=== PATIENT | male | born 1940 | race Caucasian/White ===

== ENCOUNTER → 2020-12-12 10:33 | Outpatient (CLI) | payer MEDICARE, OTHER, SELFPAY | PROVIDERS: PCP Family Medicine; Referring Provider Family Medicine; Visit Provider Family Medicine | DX: R00.1 Bradycardia, unspecified (principal) | CPT/HCPCS: 93005 ==

== ENCOUNTER → 2020-12-13 08:30 | Outpatient (CLI) | payer MEDICARE, OTHER, SELFPAY ==
[2020-12-13 09:48] LABS: Add Manual Diff / Slide Review NO; Basophils Absolute Auto 100 /uL (0-100); Basophils Percent Auto 0.9 % (0-2); Eosinophils Absolute Auto 500 /uL (0-450); Hematocrit 37.3 % (41-53); Hemoglobin 13.1 g/dL (13.5-17.5); Lymphocytes Absolute Auto 2000 /uL (1100-4500); Mean Corpuscular HGB Conc 35.1 % (30-36); Mean Corpuscular Hemoglobin 32.7 PG (26-34); Mean Corpuscular Volume 93.1 fL (80-100); Monocytes Absolute Auto 500 /uL (0-900); Monocytes Percent Auto 7.6 % (3-14); Neutrophils Absolute Auto 3700 /uL (1500-7000); Neutrophils Percent Auto 55.5 % (50-75); Platelet Count 179 X10^3/uL (150-400); Red Blood Cell Count 4.01 X10^6/uL (4.5-5.9); Red Cell Distribution Width 13.6 % (11.6-14.8); White Blood Cell Count 6.7 X10^3/uL (4.5-11.0)
[2020-12-13 09:58] LABS: Alanine Aminotransferase 19 IU/L (<50); Albumin 4.1 g/dL (3.5-5.0); Albumin Globulin Ratio 1.5 (1.0-2.8); Alkaline Phosphatase 66 U/L (38-126); Aspartate Aminotransferase 25 IU/L (17-59); BUN Creatinine Ratio 28.8 (6-22); Bilirubin Total 0.8 mg/dL (0.2-1.3); Blood Urea Nitrogen 23 mg/dL (9-20); Calcium 9.6 mg/dL (8.4-10.2); Carbon Dioxide 27 mmol/L (22-32); Chloride 104 mmol/L (98-107); Cholesterol 148 mg/dL (140-199); Estimated Glomerular Filt Rate > 60.0 mL/min (>60); Globulin 2.7 g/dL (1.7-4.1); Glucose 114 mg/dL (80-110); HDL Cholesterol 54 mg/dL (40-60); HEMOLYSIS < 15 (0-50); LDL Cholesterol Calculated 86 mg/dL (<100); Potassium 5.2 mmol/L (3.4-5.1); Sodium 138 mmol/L (137-145); Total Protein 6.8 g/dL (6.3-8.2); Triglycerides 39 mg/dL (35-150)
[2020-12-13 10:35] LABS: Prostate Specific Antigen Scrn < 0.064 ng/mL (0.1-4.0)
== END ==
PROVIDERS: PCP Family Medicine; Referring Provider Family Medicine; Visit Provider Family Medicine
DX: E78.5 Hyperlipidemia, unspecified (principal); Z12.5 Encounter for screening for malignant neoplasm of prostate; I10 Essential (primary) hypertension; N13.8 Other obstructive and reflux uropathy; N40.1 Benign prostatic hyperplasia with lower urinary tract symptoms
CPT/HCPCS: 36415; 80053; 80061; 85025; G0103

== ENCOUNTER → 2020-12-19 13:42 | Outpatient (CLI) | payer MEDICARE, OTHER, SELFPAY ==
--- NOTE | 2021-01-08 17:32 | P.HOLT.S_ITS ---
Planning Consultant Report Referral & Results Date Patient Seen: 12/19/20 Requesting provider: Shant Telles Indication: Bradycardia Duration of monitoring (days): 10 Diary information: There are no patient events to review Data: Minimum heart rate was 40 beats per minute at 11:42 on 12/24/2020 Maximum sinus heart rate was 132 beats per minute at 14:14 on 12/22/2020 Maximum overall heart rate was 156 beats per minute at 22:06 on 12/20/2020 during a 6 beat run of SVT Approximately 3.5% of identified beats were supraventricular ectopic in origin which would classify them as occasional Less than 1% of identified beats were ventricular ectopic in origin There were 11 runs of SVT the longest lasting 11.5 seconds 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
== END ==
PROVIDERS: PCP Family Medicine; Referring Provider Family Medicine; Visit Provider Family Medicine
DX: R00.1 Bradycardia, unspecified (principal)
CPT/HCPCS: 93242; 93244

== ENCOUNTER → 2021-01-03 13:27 | Outpatient (CLI) | payer MEDICARE, OTHER, SELFPAY ==
--- NOTE | 2021-01-03 13:42 | DI.ECHO.S_ITS ---
Reason For Study: Bradycardia : :Ordering Physician: JADA : :EZEQUIEL Performed By: Jason Barclay : :Referring: EZEQUIEL ELIAS : + + Interpretation Summary 1) Normal left ventricular thickness, size, wall motion, and systolic function (EF 60-65%). 2) Normal right ventricular size and function. 3) There is mild aortic regurgitation. 4) Hypertension present during the study (BP 157/85mmHg). 5) No prior Echo available for comparison. Procedure: A two-dimensional transthoracic echocardiogram with color flow and Doppler was performed. The study quality was technically adequate. There is no prior echocardiogram noted for this patient. The patient was in sinus rhythm with heart rates between 52-63 bpm during the exam. Left Ventricle: The left ventricle is normal in size and wall thickness. Left ventricular systolic function is normal. The ejection fraction is estimated to be 60-65%. There are no focal wall motion abnormalities. Diastolic parameters suggest a relaxation abnormality of the left ventricle, consistent with probable normal filling pressures. Right Ventricle: The right ventricle is normal in size and function. Atria: The left atrial size is normal. The right atrium is normal in size. There is no Doppler evidence for an interatrial shunt. Mitral Valve: There is mild mitral annular calcification. There is trace mitral regurgitation. Aortic Valve: The aortic valve is normal in structure and function. There is no aortic valve stenosis. There is mild aortic regurgitation. Tricuspid Valve: The tricuspid valve is normal in structure and function. There is trace tricuspid regurgitation. Pulmonary artery pressures cannot be estimated because of the lack of a measurable TR jet velocity but the IVC suggests a CVP of around 3 mmHg. Pulmonic Valve: The pulmonic valve is not well seen, but is grossly normal. There is a trace or physiologic amount of pulmonic regurgitation. Great Vessels: The aortic root is normal size. The dimensions of the ascending aorta are normal. The IVC is of normal diameter and collapses greater than 50% with a sniff. This suggests a low right atrial pressure of 3 mm Hg. Pericardium/ Pleura There is no pericardial effusion. There is no pleural effusion. MMode/2D Measurements & Calculations LVIDd: 5.4 cm LVOT diam: 2.3 cm LVIDs: 3.6 cm Ao root diam: 3.8 cm FS: 33.7 % asc Aorta Diam: 3.3 cm IVSd: 1.1 cm LVPWd: 0.96 cm LV albarado. diameter/BSA (cm/m^2): 2.8 LV sys. diameter/BSA (cm/m^2): 1.9 LA A2 area: 18.1 cm2 RA area: 14.2 cm2 LA A4 area: 19.8 cm2 LA length (vol): 5.0 cm LA vol: 60.1 ml LA vol index: 31.6 ml/m2 RVD1 (basal): 3.3 cm TAPSE: 2.7 cm Doppler Measurements & Calculations Ao V2 max: 176.0 cm/sec LVOT Max Hudson: 124.0 cm/sec Ao V2 mean: 119.0 cm/sec LV V1 max P.2 mmHg Ao max P.4 mmHg LV V1 VTI: 28.1 cm Ao mean P.5 mmHg LUCÍA(I,D): 2.8 cm2 Ao V2 VTI: 41.5 cm LUCÍA(V,D): 2.9 cm2 sev ratio: 0.68 LUCÍA indexed to BSA (cm^2/m^2): 1.4 MV E max hudson: 96.1 cm/sec PA V2 max: 114.0 cm/sec MV A max hudson: 119.3 cm/sec PA V2 mean: 75.5 cm/sec MV E/A: 0.81 PA mean P.6 mmHg Med Peak E' Hudson: 6.1 cm/sec PA pr(Accel): 22.9 mmHg E/E' med: 15.7 Lat Peak E' Hudson: 10.7 cm/sec E/E' lat: 8.9 E/e' average: 12.3 MV dec time: 0.32 sec SV(LVOT): 114.3 ml Reading Physician:03:52 PM
== END ==
PROVIDERS: PCP Family Medicine; Referring Provider Family Medicine; Visit Provider Family Medicine
DX: I35.1 Nonrheumatic aortic (valve) insufficiency (principal); I49.9 Cardiac arrhythmia, unspecified; I95.9 Hypotension, unspecified; R42 Dizziness and giddiness
CPT/HCPCS: 93306

== ENCOUNTER → 2022-02-11 07:15 | Outpatient (CLI) | payer MEDICARE, OTHER, SELFPAY ==
[2022-02-11 08:52] LABS: Add Manual Diff / Slide Review NO; Basophils Absolute Auto 0 /uL (0-100); Basophils Percent Auto 0.6 % (0-2); Eosinophils Absolute Auto 600 /uL (0-450); Eosinophils Percent Auto 8.9 % (2-4); Hematocrit 37.3 % (41-53); Hemoglobin 12.9 g/dL (13.5-17.5); Lymphocytes Absolute Auto 1800 /uL (1100-4500); Lymphocytes Percent Auto 27.8 % (25-40); Mean Corpuscular HGB Conc 34.5 % (30-36); Mean Corpuscular Hemoglobin 31.2 PG (26-34); Mean Corpuscular Volume 90.5 fL (80-100); Monocytes Absolute Auto 400 /uL (0-900); Monocytes Percent Auto 5.7 % (3-14); Neutrophils Absolute Auto 3700 /uL (1500-7000); Platelet Count 235 X10^3/uL (150-400); Red Blood Cell Count 4.12 X10^6/uL (4.5-5.9); Red Cell Distribution Width 13.1 % (11.6-14.8); White Blood Cell Count 6.5 X10^3/uL (4.5-11.0)
[2022-02-11 09:03] LABS: Alanine Aminotransferase 19 IU/L (<50); Albumin 4.2 g/dL (3.5-5.0); Albumin Globulin Ratio 1.4 (1.0-2.8); Alkaline Phosphatase 63 U/L (38-126); Aspartate Aminotransferase 28 IU/L (17-59); BUN Creatinine Ratio 20.2 (6-22); Bilirubin Total 0.7 mg/dL (0.2-1.3); Blood Urea Nitrogen 18 mg/dL (9-20); Carbon Dioxide 28 mmol/L (22-32); Chloride 104 mmol/L (98-107); Cholesterol 221 mg/dL (140-199); Estimated Glomerular Filt Rate > 60 mL/min (>60); Globulin 3.1 g/dL (1.7-4.1); Glucose 134 mg/dL (80-110); HDL Cholesterol 54 mg/dL (40-60); HEMOLYSIS < 15 (0-50); LDL Cholesterol Calculated 154 mg/dL (<100); Potassium 4.7 mmol/L (3.4-5.1); Sodium 138 mmol/L (137-145); Total Protein 7.3 g/dL (6.3-8.2); Triglycerides 66 mg/dL (35-150)
[2022-02-11 09:32] LABS: Prostate Specific Antigen Scrn 0.202 ng/mL (0.1-4.0)
== END ==
PROVIDERS: PCP Family Medicine; Referring Provider Family Medicine; Visit Provider Family Medicine
DX: E78.5 Hyperlipidemia, unspecified (principal); Z12.5 Encounter for screening for malignant neoplasm of prostate; N13.8 Other obstructive and reflux uropathy; N40.1 Benign prostatic hyperplasia with lower urinary tract symptoms
CPT/HCPCS: 36415; 80053; 80061; 85025; G0103

== ENCOUNTER → 2022-02-13 11:40 | Outpatient (CLI) | payer MEDICARE, OTHER, SELFPAY ==
[2022-02-13 13:14] LABS: Hemoglobin A1C% w Est Avg Glu 6.2 % (4.0-6.0)
[2022-02-13 13:28] LABS: Free T3, Triiodothyronine Free 3.48 pg/mL (2.77-5.27); Free T4, Direct Thyroxine 1.16 ng/dL (0.78-2.19)
[2022-02-13 13:42] LABS: Thyroid Stimulating Hormone 2.85 uIU/mL (0.47-4.68)
== END ==
PROVIDERS: PCP Family Medicine; Referring Provider Family Medicine; Visit Provider Family Medicine
DX: I10 Essential (primary) hypertension (principal); I95.9 Hypotension, unspecified; R00.1 Bradycardia, unspecified; R73.01 Impaired fasting glucose
CPT/HCPCS: 36415; 83036; 84439; 84443; 84481

== ENCOUNTER → 2022-04-10 14:54 | Outpatient (CLI) | payer MEDICARE, OTHER, SELFPAY ==
--- NOTE | 2022-04-10 15:00 | DIET.CONS ---
Dietary Consultation Note Assessment: 81y M and spouse attending RD visit for help with preDM (A1c 6.2) and HLD (LDL 154). Pt has made some changes to diet since getting diagnosed with preDM including avoiding cookies and breads. Pt and come with many questions. Usual Day: Eating pattern two meals and two snacks daily wakes 4:30am 5am has banana 9am breakfast: 2 scrambled eggs c mushrooms, onions and eggs, armando bits, 1/2 cup fruit (gave up toast), drinks coffee and diet Sobe (0g sugar) Snacks/Lunch: 3/4c light cottage cheese c 1/2 fresh fruit; sometimes two slices salami and two slices cheese Dinner: meatloaf c corn on cob and salad; meat (pork, chicken, fish) and potato and salad or veggies (asparagus) Pt has sweet tooth- apple or frozen yogurt stopped eating cookies Exercise: Pt has no intentional exercise, mostly yardwork. Nutrition Diagnosis: altered nutrition related laboratory values (A1c, LDL) r/t nutrition related knowledge deficit aeb A1c 6.2, LDL 154, pt reports adding >1TBS honey to breakfast, snacks on salami and cheese, pt avoiding whole grain breads. Interventions: 1. Discussed role of diet and exercise in preDM and elevated BG. 2. Educated pt and spouse on label reading for fiber and added sugars. Practiced label reading for cereal and crackers. Gave reccs for no more than 10g added sugar in cereal and boxed grain foods must have >3g dietary fiber. 3. Introduced pt and spouse to [employer] for recipes and DM meal plans. 4. Discussed difference between added and natural sugars. Honey to be counted as added. 5. Discussed role of exercise in BG regulation. Encouraged 10 minute walks 1-3x/d. Monitoring/Evaluations: f/u prn Electronically Signed by: Susan Quinonez 04/10/22 15:00 Clinical Dietitian [address] [address]
== END ==
PROVIDERS: PCP Family Medicine; Referring Provider Family Medicine; Visit Provider Family Medicine
DX: R73.03 Prediabetes (principal); E78.5 Hyperlipidemia, unspecified; Z71.3 Dietary counseling and surveillance
CPT/HCPCS: 97802

== ENCOUNTER → 2022-08-21 07:53 | Outpatient (CLI) | payer MEDICARE, OTHER, SELFPAY ==
[2022-08-21 09:05] LABS: Hemoglobin A1C% w Est Avg Glu 5.9 % (4.0-6.0)
[2022-08-21 09:06] LABS: Add Manual Diff / Slide Review NO; Basophils Absolute Auto 100 /uL (0-100); Basophils Percent Auto 0.9 % (0-2); Eosinophils Absolute Auto 700 /uL (0-450); Hematocrit 37.3 % (41-53); Hemoglobin 12.7 g/dL (13.5-17.5); Lymphocytes Absolute Auto 2200 /uL (1100-4500); Lymphocytes Percent Auto 30.4 % (25-40); Mean Corpuscular HGB Conc 33.9 % (30-36); Mean Corpuscular Hemoglobin 31.1 PG (26-34); Mean Corpuscular Volume 91.7 fL (80-100); Monocytes Absolute Auto 500 /uL (0-900); Monocytes Percent Auto 6.8 % (3-14); Neutrophils Absolute Auto 3800 /uL (1500-7000); Neutrophils Percent Auto 51.9 % (50-75); Platelet Count 305 X10^3/uL (150-400); Red Blood Cell Count 4.07 X10^6/uL (4.5-5.9); Red Cell Distribution Width 13.3 % (11.6-14.8); White Blood Cell Count 7.3 X10^3/uL (4.5-11.0)
[2022-08-21 09:18] LABS: Alanine Aminotransferase 18 IU/L (<50); Albumin 4.1 g/dL (3.5-5.0); Albumin Globulin Ratio 1.3 (1.0-2.8); Alkaline Phosphatase 59 U/L (38-126); Aspartate Aminotransferase 22 IU/L (17-59); BUN Creatinine Ratio 24.1 (6-22); Bilirubin Total 0.7 mg/dL (0.2-1.3); Blood Urea Nitrogen 21 mg/dL (9-20); Calcium 9.2 mg/dL (8.4-10.2); Carbon Dioxide 29 mmol/L (22-32); Chloride 101 mmol/L (98-107); Cholesterol 156 mg/dL (140-199); Estimated Glomerular Filt Rate > 60 mL/min (>60); Globulin 3.2 g/dL (1.7-4.1); Glucose 106 mg/dL (80-110); HDL Cholesterol 47 mg/dL (40-60); HEMOLYSIS < 15 (0-50); LDL Cholesterol Calculated 100 mg/dL (<100); Potassium 4.7 mmol/L (3.4-5.1); Sodium 139 mmol/L (137-145); Total Protein 7.3 g/dL (6.3-8.2); Triglycerides 45 mg/dL (35-150)
== END ==
PROVIDERS: PCP Family Medicine; Referring Provider Family Medicine; Visit Provider Family Medicine
DX: E78.00 Pure hypercholesterolemia, unspecified (principal); R73.03 Prediabetes; R73.01 Impaired fasting glucose
CPT/HCPCS: 36415; 80053; 80061; 83036; 85025

== ENCOUNTER → 2022-09-25 09:37 | Outpatient (CLI) | payer MEDICARE, OTHER, SELFPAY ==
--- NOTE | 2022-10-06 08:21 | P.HOLT.S_ITS ---
[employer] Associate Report Referral & Results Date Patient Seen: 09/25/22 Requesting provider: Catracho Telles Indication: Bradycardia Duration of monitoring (days): 3 Diary information: There was 1 patient triggered event. This patient triggered event was associated with sinus rhythm, PACs and probably junctional rhythm (QRS morphology preserved however) Data: Minimum heart rate identified was 35 beats per minute at 10:06 on 09/27/2022 Maximum sinus heart rate was 127 beats per minute at 10:46 on 09/27/2022 Maximum overall heart rate was 171 beats per minute at 10:36 on 09/26/2022 during a run of SVT There were no pauses of 3 seconds or longer or episodes of atrial fibrillation identified on this study Proximal 8.4% of identified beats were supraventricular ectopic in origin which classify them as frequent Less than 1% of identified beats were ventricular ectopic in origin which would classify them as rare There was 1 run of possible junctional rhythm as noted above with preserved QRS morphology was suggests a probable supraventricular source of conduction. 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 Difficult to be absolutely sure based on quality of tracings available from this time frame Clinical correlation suggested
== END ==
PROVIDERS: PCP Family Medicine; Referring Provider Family Medicine; Visit Provider Family Medicine
DX: R00.1 Bradycardia, unspecified (principal); R42 Dizziness and giddiness
CPT/HCPCS: 93242; 93244

== ENCOUNTER → 2022-10-07 07:59 | Outpatient (CLI) | payer MEDICARE, OTHER, SELFPAY ==
--- NOTE | 2022-10-07 | DI.RAD.S_ITS ---
PROCEDURE: XR FOOT RT MIN 3V INDICATIONS: INJURY TECHNIQUE: 3 views of the foot were acquired. COMPARISON: None. FINDINGS: Bones: No fractures or dislocations. Mild hallux valgus deformity with bunion formation. There is moderate to severe joint space loss at the 1st MTP joint. Small osteophytes. No suspicious bony lesions. Soft tissues: No tibiotalar joint effusion. Achilles tendon appears normal. 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 Mild hallux valgus deformity with bunion formation. Dictated by: Remberto Zuluaga M.D. on 10/07/2022 at 10:52 Approved by: Remberto Zuluaga M.D. on 10/07/2022 at 10:55
--- NOTE | 2022-10-07 08:00 | DI.ECHO.S_ITS ---
[facility] +---------+ [facility] +---------+ : : [address] : : : : [id number] : : : : Phone: [phone]---------+ Echocardiogram Report + + :Name: CUAUHTEMOC QUINTANA Study Date: 10/07/2022 Height: 65 in : :[facility] ReadingLocation: Weight: 161 lb : : Gender: Male BSA: 1.8 m2 : :: 1940 Age: 82 yrs BP: 132/76 mmHg: :Reason For Study: BRADYCARDIA : :Ordering Physician: EZEQUIEL ELIASPerformed By: Radha Cook : :Referring: EZEQUIEL ELIAS : + + Interpretation Summary 1) Normal left ventricular thickness and size with low normal systolic function (EF 50-55%). 2) Normal right ventricular size and function. 3) There is mild mitral regurgitation. There is mild aortic regurgitation. 4) There is a trace loculated pericardial effusion. 5) Compared to the Echo done 01/03/2021, LVEF has decreased slightly from 60- 65% to 50-55% on this study. Procedure: A two-dimensional transthoracic echocardiogram with color flow and Doppler was performed. The study quality was technically adequate. Comparison is made with the echocardiogram of 01/03/2021. The patient was in sinus bradycardia with heart rates between 42-60 bpm during the exam. The patient had occasional PVCs during the exam. Left Ventricle: The left ventricle is normal in size and wall thickness. The ejection fraction is estimated to be 50-55%. There are no focal wall motion abnormalities. Right Ventricle: The right ventricle is normal in size and function. Atria: The left atrium is severely dilated. Right atrial size is normal. There is no Doppler evidence for an interatrial shunt. Mitral Valve: The mitral valve leaflets appear mildly thickened, but open well. There is mild mitral annular calcification. There is mild mitral regurgitation. Aortic Valve: The aortic valve is trileaflet. The aortic valve opens well. There is no aortic valve stenosis. There is mild aortic regurgitation. Tricuspid Valve: The tricuspid valve is normal in structure and function. There is trace tricuspid regurgitation. Pulmonary artery pressures cannot be estimated because of the lack of a measurable TR jet velocity. Pulmonic Valve: The pulmonic valve leaflets are thin and pliable; valve motion is normal. There is mild pulmonic regurgitation. Great Vessels: The aortic root is borderline dilated. The dimensions of the ascending aorta are normal. The IVC is of normal diameter and collapses greater than 50% with a sniff. This suggests a low right atrial pressure of 3 mm Hg. Pericardium/ Pleura There is a trace loculated pericardial effusion. There is no pleural effusion. MMode/2D Measurements & Calculations LVIDd: 5.9 cm LVOT diam: 2.1 cm LVIDs: 3.8 cm Ao root diam: 3.9 cm FS: 35.2 % asc Aorta Diam: 3.3 cm IVSd: 0.79 cm Ao Arch Diam (Prox Trans): 2.4 cm LVPWd: 1.1 cm LV albarado. diameter/BSA (cm/m^2): 3.3 LV sys. diameter/BSA (cm/m^2): 2.1 LA A2 area: 27.8 cm2 RA long axis: 5.7 cm LA A4 area: 23.7 cm2 RA area: 17.9 cm2 LA length (vol): 6.1 cm RA vol: 47.7 ml LA vol: 92.3 ml RA : 26.4 ml/m2 LA vol index: 51.1 ml/m2 IVC diam: 0.96 cm RVD1 (basal): 3.8 cm RVD2 (mid): 3.5 cm TAPSE: 2.4 cm Doppler Measurements & Calculations Ao V2 max: 149.8 cm/sec LVOT Max Hudson: 87.3 cm/sec Ao V2 mean: 101.7 cm/sec LV V1 max P.1 mmHg Ao max P.0 mmHg LV V1 VTI: 21.6 cm Ao mean P.8 mmHg LUCÍA(I,D): 1.8 cm2 Ao V2 VTI: 39.5 cm LUCÍA(V,D): 2.0 cm2 sev ratio: 0.55 LUCÍA indexed to BSA (cm^2/m^2): 1.0 MV E max hudson: 77.4 cm/sec PA V2 max: 100.2 cm/sec MV A max hudson: 103.4 cm/sec PA V2 mean: 66.5 cm/sec MV E/A: 0.75 PA mean P.0 mmHg Med Peak E' Hudson: 4.1 cm/sec PA pr(Accel): 25.9 mmHg E/E' med: 18.9 Lat Peak E' Hudson: 7.5 cm/sec E/E' lat: 10.3 E/e' average: 14.6 MV dec time: 0.33 sec SV(LVOT): 72.8 ml Reading Physician:10:12 AM
== END ==
PROVIDERS: PCP Family Medicine; Referring Provider Family Medicine; Visit Provider Family Medicine
DX: R42 Dizziness and giddiness (principal); R00.1 Bradycardia, unspecified; I10 Essential (primary) hypertension; I08.0 Rheumatic disorders of both mitral and aortic valves
CPT/HCPCS: 73630; 93306

== ENCOUNTER → 2024-04-19 14:52 | Outpatient (CLI) | payer MEDICARE, OTHER, SELFPAY ==
[2024-04-19 15:57] LABS: Add Manual Diff / Slide Review NO; Basophils Absolute Auto 0 /uL (0-100); Basophils Percent Auto 0.7 % (0-2); Eosinophils Absolute Auto 700 /uL (0-450); Eosinophils Percent Auto 9.7 % (2-4); Hematocrit 36.7 % (41-53); Hemoglobin 12.6 g/dL (13.5-17.5); Lymphocytes Absolute Auto 2200 /uL (1100-4500); Lymphocytes Percent Auto 30.3 % (25-40); Mean Corpuscular HGB Conc 34.3 % (30-36); Mean Corpuscular Hemoglobin 31.7 PG (26-34); Mean Corpuscular Volume 92.4 fL (80-100); Monocytes Absolute Auto 400 /uL (0-900); Neutrophils Absolute Auto 3800 /uL (1500-7000); Neutrophils Percent Auto 53.3 % (50-75); Platelet Count 275 X10^3/uL (150-400); Red Blood Cell Count 3.98 X10^6/uL (4.5-5.9); White Blood Cell Count 7.1 X10^3/uL (4.5-11.0)
[2024-04-19 18:05] LABS: Alanine Aminotransferase 13 IU/L (<50); Albumin 4.2 g/dL (3.5-5.0); Albumin Globulin Ratio 1.4 (1.0-2.8); Alkaline Phosphatase 69 U/L (38-126); Aspartate Aminotransferase 26 IU/L (17-59); BUN Creatinine Ratio 16.5 (6-22); Bilirubin Total 0.6 mg/dL (0.2-1.3); Blood Urea Nitrogen 15 mg/dL (9-20); Calcium 9.2 mg/dL (8.4-10.2); Carbon Dioxide 28 mmol/L (22-32); Chloride 103 mmol/L (98-107); Cholesterol 167 mg/dL (140-199); Estimated Glomerular Filt Rate > 60 mL/min (>60); Glucose 116 mg/dL (80-110); HDL Cholesterol 58 mg/dL (40-60); HEMOLYSIS < 15 (0-50); LDL Cholesterol Calculated 98 mg/dL (<100); Potassium 5.3 mmol/L (3.4-5.1); Sodium 136 mmol/L (137-145); Total Protein 7.2 g/dL (6.3-8.2); Triglycerides 55 mg/dL (35-150)
[2024-04-19 18:36] LABS: Prostate Specific Antigen 0.128 ng/mL (0.10-4.00)
== END ==
PROVIDERS: PCP Family Medicine; Referring Provider Family Medicine; Visit Provider Family Medicine
DX: E78.00 Pure hypercholesterolemia, unspecified (principal); R73.03 Prediabetes; E78.5 Hyperlipidemia, unspecified; N40.1 Benign prostatic hyperplasia with lower urinary tract symptoms; G60.9 Hereditary and idiopathic neuropathy, unspecified; R73.01 Impaired fasting glucose; N13.8 Other obstructive and reflux uropathy; I95.9 Hypotension, unspecified; I10 Essential (primary) hypertension
CPT/HCPCS: 36415; 80053; 80061; 83036; 84153; 85025

== ENCOUNTER → 2024-07-27 09:59 | Outpatient (CLI) | payer MEDICARE, OTHER, SELFPAY ==
--- NOTE | 2024-07-27 10:12 | DI.CT.S_ITS ---
PROCEDURE: CT HEAD/BRAIN WO CON INDICATIONS: new onset headache TECHNIQUE: Noncontrast 4.5 mm thick angled axial sections acquired from the foramen magnum to the vertex, with coronal and sagittal reformats. For radiation dose reduction, the following was used: automated exposure control, adjustment of mA and/or kV according to patient size. COMPARISON: None. FINDINGS: Image quality: Diagnostic. CSF spaces: Basal cisterns are patent. No extra-axial fluid collections. The ventricles are symmetric in size and shape. Brain: No intracranial bleeds or masses. There is cerebral volume loss for age, with resultant ventricular and sulcal prominence. There are periventricular and deep white matter chronic small vessel ischemic changes. There is intracranial internal carotid artery atherosclerosis. Areas of calcification can be seen along the falx, which are not considered to be pathologic for age. Skull and face: Calvarium and visualized facial bones appear intact, without suspicious lesions. Sinuses: Visualized sinuses and mastoids are clear. IMPRESSION: No acute intracranial hemorrhage is seen. No acute intracranial pathology. To the limits of this noncontrast study, no findings of intracranial masses or mass effect can be seen. Dictated by: Reji Prather M.D. on 07/27/2024 at 9:35 Approved by: Reji Prather M.D. on 07/27/2024 at 9:36
== END ==
LOC: CT 10:00
PROVIDERS: PCP Family Medicine; Referring Provider Family Medicine; Visit Provider Family Medicine
DX: I67.2 Cerebral atherosclerosis (principal); R51.9 Headache, unspecified
CPT/HCPCS: 70450

== ENCOUNTER → 2024-07-28 11:35 | Outpatient (CLI) | payer MEDICARE, OTHER, SELFPAY ==
[2024-07-28 13:58] LABS: C-Reactive Protein Quant < 0.5 mg/dL (<1.0)
[2024-07-28 14:09] LABS: Erythrocyte Sedimentation Rate 9 MM/HR (0-15)
== END ==
PROVIDERS: PCP Family Medicine; Referring Provider Family Medicine; Visit Provider Family Medicine
DX: R51.9 Headache, unspecified (principal)
CPT/HCPCS: 36415; 85651; 86140

== ENCOUNTER → 2024-07-30 10:59 | Outpatient (CLI) | payer MEDICARE, OTHER, SELFPAY ==
--- NOTE | 2024-07-30 11:01 | DI.MRI.S_ITS ---
PROCEDURE: MR HEAD/BRAIN WO/W CON INDICATIONS: new onset headache after 81yo TECHNIQUE: Noncontrast axial T1 spin echo, axial T2 fast spin echo, sagittal and axial FLAIR, coronal T2 fast spin echo, axial gradient echo, axial diffusion and ADC through the brain. After the administration of contrast, axial and coronal and sagittal 3D VIBE or T1 spin echo with fat saturation through the brain. COMPARISON: None. FINDINGS: CSF Spaces: Basal cisterns are patent. No extra-axial fluid collections. Ventricles are normal in size and shape. Brain: No intracranial masses or hemorrhage. Rodriguez/white matter interface is normal. Brainstem appears normal. Diffusion-weighted sequence is unremarkable without evidence of acute infarct. Normal intravascular flow voids are present. Mild atrophy and white matter chronic ischemic change Skull and face: Calvarial marrow is normal in signal. Orbits appear normal. Bilateral intraocular lens replacements noted. Sinuses: Sinuses and mastoids appear clear. IMPRESSION: Mild atrophy and chronic ischemic change without intracranial hemorrhage or mass effect. Approved by: Atilio Ford M.D. on 07/30/2024 at 12:11
== END ==
PROVIDERS: PCP Family Medicine; Referring Provider Family Medicine; Visit Provider Family Medicine
DX: R51.9 Headache, unspecified (principal)
CPT/HCPCS: 70553; A9579

== ENCOUNTER → 2025-08-07 09:29 | Outpatient (CLI) | payer MEDICARE, OTHER, SELFPAY ==
[2025-08-07 10:27] LABS: Add Manual Diff / Slide Review NO; Hematocrit 36.6 % (41-53); Hemoglobin 12.7 g/dL (13.5-17.5); Lymphocytes Absolute Auto 1800 /uL (1100-4500); Mean Corpuscular HGB Conc 34.6 % (30-36); Mean Corpuscular Hemoglobin 31.4 PG (26-34); Mean Corpuscular Volume 90.8 fL (80-100); Platelet Count 260 X10^3/uL (150-400)
[2025-08-07 10:55] LABS: Alanine Aminotransferase 21 IU/L (<50); Albumin 4.2 g/dL (3.5-5.0); Albumin Globulin Ratio 1.3 (1.0-2.8); Alkaline Phosphatase 66 U/L (38-126); Blood Urea Nitrogen 16 mg/dL (9-20); Calcium 9.0 mg/dL (8.4-10.2); Carbon Dioxide 30 mmol/L (22-32); Chloride 102 mmol/L (98-107); Cholesterol 210 mg/dL (140-199); Estimated Glomerular Filt Rate > 60 mL/min (>60); Globulin 3.2 g/dL (1.7-4.1); Glucose 130 mg/dL (70-99); HDL Cholesterol 67 mg/dL (40-60); HEMOLYSIS < 15 (0-50); Potassium 4.5 mmol/L (3.4-5.1); Sodium 137 mmol/L (137-145); Total Protein 7.4 g/dL (6.3-8.2); Triglycerides 47 mg/dL (35-150)
== END ==
PROVIDERS: PCP Family Medicine; Referring Provider Family Medicine; Visit Provider Family Medicine
DX: I10 Essential (primary) hypertension (principal); E78.5 Hyperlipidemia, unspecified; I95.9 Hypotension, unspecified; Z12.5 Encounter for screening for malignant neoplasm of prostate
CPT/HCPCS: 36415; 80053; 80061; 85025; G0103